=== PATIENT | male | born 1980 | race African-American/Black ===

== ENCOUNTER 2016-09-11 11:19 | Emergency (ER) | payer OTHER ==
[~2016-09-11] VITALS: Ht 172.7 cm; Wt 83.9 kg
[~2016-09-11 11:19] MED LIST: ACCUNEB SO1.25 MG/1 INH; ALBUTEROL2.5 MG/31 INH; KEFLEX500 MG PO; LIDODERM 5%1 PATC1 TRANSDERM; NAPROSYN500 MG PO; NORCO 5-325 TA1 EACH PO; PREDNISONE 20 M20 MG PO; PROVENTIL HFA6.7 G1 INH; VALIUM5 MG PO
[2016-09-11 11:30] VITALS: BP 176/112
[2016-09-11] MEDS ORDERED: TIZANIDINE HCL4 MG PO (11:38)
== END 2016-09-11 11:41 | disposition home or self-care (01) ==
LOC: ER 11:19
DX: S16.1XXA Strain of muscle, fascia and tendon at neck level, initial encounter (principal); M54.5 Low back pain; J45.909 Unspecified asthma, uncomplicated; F17.210 Nicotine dependence, cigarettes, uncomplicated; F10.99 Alcohol use, unspecified with unspecified alcohol-induced disorder; Z88.6 Allergy status to analgesic agent; V49.40XA Driver injured in collision with unspecified motor vehicles in traffic accident, initial encounter; Y93.I9 Activity, other involving external motion; Y92.89 Other specified places as the place of occurrence of the external cause; Y99.8 Other external cause status

== ENCOUNTER 2017-10-24 19:48 | Emergency (ER) | payer OTHER ==
[~2017-10-24] VITALS: Ht 175.3 cm; Wt 88.5 kg
[~2017-10-24 19:48] MED LIST changes: +TIZANIDINE HCL4 MG PO
[2017-10-24 20:12] LABS: URINE BLOOD TRACE (Negative); URINE CLARITY CLEAR; URINE COLOR YELLOW; URINE GLUCOSE-RANDOM* NEGATIVE (Negative); URINE KETONES NEGATIVE (Negative); URINE NITRITE-REFLEX NEGATIVE (Negative); URINE PROTEIN (DIPSTICK) TRACE (Negative); URINE SPECIFIC GRAVITY 1.025 (1.005-1.035)
[2017-10-24 20:14] LABS: ICTOTEST (BILI CONFIRMATORY) Negative (Negative); URINE BILIRUBIN NEGATIVE (Negative); URINE LEUKOCYTES-REFLEX 2+ (Negative)
[2017-10-24 20:22] LABS: CASTS None Seen /LPF (None Seen); CRYSTALS None Seen /LPF (None Seen); SQUAMOUS 4-10 Moderate /LPF (0-3); URINE RBC 3-10 Few /HPF (0-2); URINE WBC-REFLEX >25 Many /HPF (0-5)
[2017-10-24 22:11] VITALS: BP 148/106
== END 2017-10-24 22:11 | disposition home or self-care (01) ==
LOC: ER 19:48
PROVIDERS: Emergency Medicine
DX: A64 Unspecified sexually transmitted disease (principal); R36.9 Urethral discharge, unspecified; J45.909 Unspecified asthma, uncomplicated; F17.210 Nicotine dependence, cigarettes, uncomplicated; Z88.6 Allergy status to analgesic agent

== ENCOUNTER 2018-01-11 20:22 | Emergency (ER) | payer OTHER ==
[~2018-01-11] VITALS: Ht 175.3 cm; Wt 83.9 kg
[2018-01-11] MEDS ORDERED: HYDROCODONE-AP1 EAC6 PO (22:17)
[2018-01-11] MEDS ORDERED: ERYTHROMYCIN E3.5 G3 OPHTHALMIC (22:17)
== END 2018-01-11 22:33 | disposition home or self-care (01) ==
LOC: ER 20:22
DX: H16.133 Photokeratitis, bilateral (principal); F17.210 Nicotine dependence, cigarettes, uncomplicated; J45.909 Unspecified asthma, uncomplicated; Z88.6 Allergy status to analgesic agent

== ENCOUNTER 2018-04-24 22:48 | Emergency (ER) | payer OTHER ==
[~2018-04-24] VITALS: Ht 175.3 cm; Wt 88.5 kg
[~2018-04-24 22:48] MED LIST changes: +ERYTHROMYCIN E3.5 G3 OPHTHALMIC; +HYDROCODONE-AP1 EAC6 PO
[2018-04-24 23:38] LABS: URINE BILIRUBIN NEGATIVE (Negative); URINE BLOOD NEGATIVE (Negative); URINE CLARITY CLEAR; URINE COLOR YELLOW; URINE GLUCOSE-RANDOM* NEGATIVE (Negative); URINE KETONES NEGATIVE (Negative); URINE LEUKOCYTES-REFLEX 1+ (Negative); URINE NITRITE-REFLEX NEGATIVE (Negative); URINE PROTEIN (DIPSTICK) NEGATIVE (Negative); URINE SPECIFIC GRAVITY 1.025 (1.005-1.035)
[2018-04-24 23:45] LABS: BACTERIA-REFLEX 1-9 Few /HPF (None Seen); CASTS None Seen /LPF (None Seen); CRYSTALS None Seen /LPF (None Seen); MUCUS 0-3 Light strn/LPF (None Seen); SQUAMOUS 4-10 Moderate /LPF (0-3); URINE RBC 3-10 Few /HPF (0-2)
[2018-04-25 00:13] VITALS: BP 163/118
== END 2018-04-25 00:14 | disposition home or self-care (01) ==
LOC: ER 22:48
PROVIDERS: Emergency Medicine
DX: A64 Unspecified sexually transmitted disease (principal); J45.909 Unspecified asthma, uncomplicated; Z88.6 Allergy status to analgesic agent; Z88.8 Allergy status to other drugs, medicaments and biological substances

== ENCOUNTER 2018-06-15 06:47 | Emergency (ER) | payer OTHER ==
[~2018-06-15] VITALS: Ht 175.3 cm; Wt 83.9 kg
[2018-06-15 06:52] VITALS: BP 159/107
[2018-06-15 07:13] LABS: URINE BILIRUBIN NEGATIVE (Negative); URINE BLOOD NEGATIVE (Negative); URINE CLARITY CLEAR; URINE COLOR YELLOW; URINE GLUCOSE-RANDOM* NEGATIVE (Negative); URINE KETONES NEGATIVE (Negative); URINE LEUKOCYTES-REFLEX 2+ (Negative); URINE NITRITE-REFLEX NEGATIVE (Negative); URINE PROTEIN (DIPSTICK) NEGATIVE (Negative); URINE SPECIFIC GRAVITY 1.025 (1.005-1.035)
[2018-06-15 07:23] LABS: SQUAMOUS >10 Many /LPF (0-3)
[2018-06-15 07:24] LABS: CASTS None Seen /LPF (None Seen); MUCUS 0-3 Light strn/LPF (None Seen); URINE WBC-REFLEX >25 Many /HPF (0-5)
[2018-06-15 07:25] LABS: CRYSTALS None Seen /LPF (None Seen); URINE RBC 0-2 Rare /HPF (0-2)
[2018-06-15] MEDS ORDERED: AZITHROMYCIN 2250 MG PO (07:42)
== END 2018-06-15 08:08 | disposition home or self-care (01) ==
LOC: ER 06:47
PROVIDERS: Emergency Medicine
DX: A59.9 Trichomoniasis, unspecified (principal); J45.909 Unspecified asthma, uncomplicated; F17.210 Nicotine dependence, cigarettes, uncomplicated; Z88.6 Allergy status to analgesic agent; Z88.8 Allergy status to other drugs, medicaments and biological substances

== ENCOUNTER 2018-12-25 18:52 | Emergency (ER) | payer OTHER ==
[~2018-12-25] VITALS: Ht 175.3 cm; Wt 84.8 kg
[~2018-12-25 18:52] MED LIST changes: +AZITHROMYCIN 2250 MG PO
[2018-12-25] MEDS ORDERED: VENTOLIN HFA 1818 GM INH (19:44)
[2018-12-25] MEDS ORDERED: TESSALON PERLE100 MG PO (19:44)
[2018-12-25] MEDS ORDERED: PREDNISONE 20 M20 MG PO (19:44)
[2018-12-25 20:08] VITALS: BP 158/106
== END 2018-12-25 20:09 | disposition home or self-care (01) ==
LOC: ER 18:52
DX: J20.9 Acute bronchitis, unspecified (principal); J45.909 Unspecified asthma, uncomplicated; F17.210 Nicotine dependence, cigarettes, uncomplicated; Z88.8 Allergy status to other drugs, medicaments and biological substances

== ENCOUNTER 2019-03-05 21:14 | Emergency (ER) | payer OTHER ==
[~2019-03-05] VITALS: Ht 175.3 cm; Wt 83.5 kg
[~2019-03-05 21:14] MED LIST changes: +TESSALON PERLE100 MG PO; +VENTOLIN HFA 1818 GM INH
[2019-03-05] MEDS ORDERED: PREDNISONE50 MG PO (22:46)
[2019-03-05] MEDS ORDERED: ALBUTEROL2.5 MG/31 INH (22:46)
[2019-03-05] MEDS ORDERED: PROAIR HFA8.5 GM INH (22:46)
[2019-03-05 23:00] VITALS: BP 155/102
== END 2019-03-05 22:59 | disposition home or self-care (01) ==
LOC: ER 21:14
DX: J45.901 Unspecified asthma with (acute) exacerbation (principal); I10 Essential (primary) hypertension; F17.210 Nicotine dependence, cigarettes, uncomplicated; Z88.8 Allergy status to other drugs, medicaments and biological substances

== ENCOUNTER 2019-03-25 23:44 | Emergency (ER) | payer OTHER ==
[~2019-03-25] VITALS: Ht 175.3 cm; Wt 83.9 kg
[~2019-03-25 23:44] MED LIST changes: +PREDNISONE50 MG PO; +PROAIR HFA8.5 GM INH
[2019-03-25 23:46] VITALS: BP 176/111
[2019-03-26] MEDS ORDERED: KEFLEX500 M1 PO (00:16)
== END 2019-03-26 00:35 | disposition home or self-care (01) ==
LOC: ER 23:44
DX: L03.115 Cellulitis of right lower limb (principal); F17.210 Nicotine dependence, cigarettes, uncomplicated; Z88.8 Allergy status to other drugs, medicaments and biological substances

== ENCOUNTER 2019-04-13 22:44 | Emergency (ER) | payer OTHER ==
[~2019-04-13] VITALS: Ht 175.3 cm; Wt 83.9 kg
--- NOTE | ~2019-04-13 | EKG ---
[facility] Maryuri Rodrí[place]uez [place] [address] ELECTROCARDIOGRAM REPORT Name: KIRAN MARREROWesley Jones Room #: DEP [facility]#: [id number] Admission: 04/13/19 Attend Phys: Discharge: 04/14/19 Date of : 76 Report #: [id number] THIS REPORT FOR: cc: DULCE MARIA - Lissa family physician/PCP DULCE MARIA - No family physician/PCP Mitzi Cartagena MD ~ THIS REPORT FOR: //name// [facility] ED Test Date: 2019-04-14 Test Time: 00:47:53 Pat Name: JAVI MARRERO Department: Room: Gender: M Protection Manager: [email or web address] : 1980 Requested By: Clif Clement Order Number: [id number] MD: Measurements Intervals [place] Rate: 64 P: 18 TX: 184 QRS: -8 QRSD: 78 T: -5 QT: 386 QTc: 399 Interpretive Statements Sinus rhythm Anterior infarct, old Borderline T abnormalities, inferior leads Borderline ST elevation, lateral leads No previous ECG available for comparison [email or web address] By: [id number] Epiphany EpiphanyMD /EPI
[~2019-04-13 22:44] MED LIST changes: +KEFLEX500 M1 PO
[2019-04-14 00:21] LABS: ABSOLUTE NEUTROPHILS 4.3 thou/uL (1.4-8.2); BASOPHILS 1.1 % (0.0-2.0); HEMATOCRIT 45.2 % (42.0-52.0); HEMOGLOBIN 14.7 gm/dL (14.0-18.0); LYMPHOCYTES 41.7 % (24.0-44.0); MCH 27.3 pg (26.0-34.0); MCHC 32.7 g/dL (28.0-37.0); MCV 83.5 fL (80.0-100.0); MONOCYTES 7.4 % (1.0-8.0); PLATELET COUNT 213 thou/uL (150-400); POLYS 47.8 % (36.0-66.0); RBC 5.41 mil/uL (4.50-6.00); RDW 13.8 % (10.5-14.5)
[2019-04-14 00:29] LABS: CALCIUM 8.6 mg/dL (8.5-10.1); CREATININE 1.2 mg/dL (0.7-1.3); POTASSIUM 3.5 mmol/L (3.5-5.1)
[2019-04-14 00:36] LABS: ALBUMIN 3.8 g/dL (3.4-5.0); TOTAL BILIRUBIN 0.5 mg/dL (<0.1-1.0); TOTAL PROTEIN 7.5 g/dL (6.4-8.2)
[2019-04-14 00:59] LABS: URINE BILIRUBIN NEGATIVE (Negative); URINE BLOOD NEGATIVE (Negative); URINE CLARITY CLEAR; URINE COLOR YELLOW; URINE GLUCOSE-RANDOM* NEGATIVE (Negative); URINE KETONES NEGATIVE (Negative); URINE NITRITE-REFLEX NEGATIVE (Negative); URINE PROTEIN (DIPSTICK) NEGATIVE (Negative); URINE SPECIFIC GRAVITY 1.025 (1.005-1.035)
[2019-04-14 01:00] LABS: URINE LEUKOCYTES-REFLEX 2+ (Negative)
[2019-04-14 01:10] LABS: BACTERIA-REFLEX 1-9 Few /HPF (None Seen); CASTS None Seen /LPF (None Seen); MUCUS 0-3 Light strn/LPF (None Seen); SQUAMOUS 4-10 Moderate /LPF (0-3); URINE RBC 0-2 Rare /HPF (0-2); URINE WBC-REFLEX >25 Many /HPF (0-5)
[2019-04-14 01:11] LABS: CRYSTALS None Seen /LPF (None Seen)
[2019-04-14] MEDS ORDERED: PRILOSEC OTC20 MG PO (01:15)
[2019-04-14] MEDS ORDERED: PRINIVIL20 M1 PO (01:15)
[2019-04-14 01:56] VITALS: BP 166/116
== END 2019-04-14 02:06 | disposition home or self-care (01) ==
LOC: ER 22:44
PROVIDERS: Emergency Medicine
DX: N34.2 Other urethritis (principal); I10 Essential (primary) hypertension; R10.84 Generalized abdominal pain; J45.909 Unspecified asthma, uncomplicated; F17.210 Nicotine dependence, cigarettes, uncomplicated; Z88.8 Allergy status to other drugs, medicaments and biological substances

== ENCOUNTER → 2019-05-21 | Outpatient (CLI) | payer OTHER ==
[~2019-05-21] MED LIST changes: +PRILOSEC OTC20 MG PO; +PRINIVIL20 M1 PO
== END ==
LOC: SJCVCIMAG 08:11
DX: I36.1 Nonrheumatic tricuspid (valve) insufficiency (principal); I11.9 Hypertensive heart disease without heart failure; Z87.891 Personal history of nicotine dependence